=== PATIENT | male | born 1990 | race Caucasian/White ===

== ENCOUNTER 2016-08-24 07:16 | Emergency (ER) | payer MEDICAID ==
[~2016-08-24] VITALS: Ht 175.3 cm; Wt 58.5 kg
[2016-08-24 08:27] LABS: PATH.CAST-FLAG NOT PRESENT; SPERM-FLAG NOT PRESENT; SRC-FLAG NOT PRESENT; XTAL-FLAG NOT PRESENT; YLC-FLAG NOT PRESENT
[2016-08-24 10:06] VITALS: BP 117/68
== END 2016-08-24 10:07 ==
LOC: ED 10:02
DX: R33.8 Other retention of urine (principal)
CPT/HCPCS: 51702; 81001

== ENCOUNTER 2016-10-07 16:04 | Emergency (ER) | payer SELFPAY ==
[2016-10-07] MEDS ORDERED: ASPIRIN 81 MG TABLET CHEW PO ONE (16:30)
[2016-10-07] MEDS ORDERED: SODIUM CHLORIDE 0.9% 1,000ML IVBOLUS ONE (16:30)
[2016-10-07] MEDS ORDERED: SODIUM CHLORIDE FLUSH 10ML SYR IVF ONE (16:30)
[2016-10-07 17:03] LABS: BLOOD UREA NITROGEN 16 mg/dL (7-18)
[2016-10-07 18:22] LABS: DAU SCREEN DISCLAIMER
[2016-10-07 19:51] VITALS: BP 104/68
== END 2016-10-07 19:55 | disposition home or self-care (01) ==
LOC: ED 19:45
DX: R55 Syncope and collapse (principal); R42 Dizziness and giddiness; R11.0 Nausea
CPT/HCPCS: 36415; 71020; 80048; 80307; 81003; 82040; 85025; 93005; 96360; 96361; 99285; J7030